=== PATIENT | male | born 1950 | race Caucasian/White ===

== ENCOUNTER 2022-09-05 22:09 | Emergency (ER) | payer BC ==
[~2022-09-05] VITALS: Ht 162.6 cm; Wt 54.5 kg
[2022-09-05 22:16] VITALS: BP 155/86
[2022-09-05] MEDS ORDERED: acetaminophen 325mg tablet PO ONE (23:55)
[2022-09-05] MEDS ORDERED: LORazepam 1 MG tablet PO ONE (23:55)
[2022-09-06] MEDS ORDERED: magnesium Cl slow-release 64mg tablet PO SCH (00:07)
--- NOTE | 2022-09-06 00:14 | NUR ---
he took his meds in applesauce crushed spit most of them out at me. He requested them be like this. Don't know why he acted this way. informed.
== END 2022-09-06 00:32 | disposition home or self-care (01) ==
LOC: ER 22:09
DX: M25.561 Pain in right knee (principal); M25.562 Pain in left knee; F17.200 Nicotine dependence, unspecified, uncomplicated; F12.10 Cannabis abuse, uncomplicated; Z56.0 Unemployment, unspecified
CPT/HCPCS: 99284